=== PATIENT | male | born 1970 | race Caucasian/White ===

== ENCOUNTER 2018-02-21 08:20 | Outpatient (CLI) ==
--- NOTE | 2018-02-21 09:07 | US ---
EXAM: Right upper quadrant abdominal ultrasound. History: Elevated liver enzymes. Technique: Multiple sonographic images through the abdomen were obtained. Color duplex Doppler was used to interrogate vascular flow. Findings: The liver is enlarged measuring 20 cm in length. The liver is diffusely echogenic. No focal liver l esions identified sonographically. There is antegrade flow within the main portal vein. Pancreas is not seen due to obscuration by bowel gas. Limited visualization of the right kidney demonstrates no evidence for hydronephrosis. Common bile duct measures 0.4 cm in caliber. Gallbladder wall is uppe r limits of normal in thickness. There are several gallbladder wall polyps versus adherent gallstone s with the largest measuring 0.5 cm. Impression: 1. Enlarged fatty liver. 2. Several gallbladder wall polyps versus adherent gallstones. Gallbladder wall is upper limits of normal in thickness.
== END 2018-02-21 08:21 | disposition home or self-care (01) ==
LOC: RAD 08:20
PROVIDERS: ATTEND Family Medicine
DX: R74.8 Abnormal levels of other serum enzymes (principal)